=== PATIENT | male | born 1990 | race Caucasian/White ===

== ENCOUNTER → 2017-08-29 | Day surgery (SDC) | payer OTHER ==
[2017-08-25 09:35] VITALS: BMI 55.0
--- NOTE | 2017-08-25 10:03 | PAT Medication Instructions ---
Service Date Aug 25, 2017. Current Home Medication List Albuterol Hfa (Ventolin Hfa), 2-4 PUFFS INH Q6H Medication Instructions For Your Scheduled Surgery - Take the following medications the morning of surgery: Albuterol Hfa (Ventolin Hfa), 2-4 PUFFS INH Q6H (use if needed; BRING TO HOSPITAL) *nothing to eat or drink after midnight* If you have any questions please call us at [phone] or [phone] or [phone]
--- NOTE | 2017-08-25 10:40 | DIAGNOSTIC IMAGING REPORT ---
CHEST 2 VIEWS ROUTINE HISTORY: Preop. COMPARISON: Chest CTA 06/16/2015. FINDINGS: The lungs are clear. Cardiac silhouette is normal in size. No pleural effusions. No pneumothorax. Incidental note is made of a right azygos lobe. IMPRESSION: No acute process. Electronically signed by: Karson Mendoza M.D. 08/25/2017 10:39 AM Dictated Date/Time: 08/25/2017 10:36 AM
[2017-08-25 11:15] LABS: BASO % 0.3 %; BASO ABS # 0.02 K/uL (0-0.2); EOS ABS # 0.26 K/uL (0-0.5); HEMATOCRIT 47.7 % (42-52); IG# 0.01 K/uL (0.00-0.02); LYMPH % 30.9 %; LYMPH ABS # 2.01 K/uL (1.2-3.4); MEAN CELL VOLUME 82.7 fL (80-100); MEAN CORPUSCULAR HEMOGLOBIN 27.7 pg (25-34); MEAN CORPUSCULAR HGB CONC 33.5 g/dl (32-36); MEAN PLATELET VOLUME 9.1 fL (7.4-10.4); MONO % 9.2 %; NEUT % 55.4 %; PLATELET COUNT 250 K/uL (130-400); RED CELL DISTRIBUTION WIDTH CV 14.9 % (11.5-14.5); RED CELL DISTRIBUTION WIDTH SD 44.8 fL (36.4-46.3)
[2017-08-25 11:23] LABS: BLOOD UREA NITROGEN 14 mg/dl (7-18); CALCIUM 9.1 mg/dl (8.5-10.1); CARBON DIOXIDE 28 mmol/L (21-32); GLUCOSE 86 mg/dl (70-99); POTASSIUM 4.2 mmol/L (3.5-5.1); SODIUM 137 mmol/L (136-145)
[~2017-08-29] VITALS: Ht 175.3 cm; Wt 170.2 kg
[~2017-08-29] MED LIST: ATROPINE SULFATE 0.1 MG/ML 5ML SYR IV PRN; BUPIVACAINE 0.5 % 5 MG/1 ML MPF 30ML VIAL ONE; CEFAZOLIN 3000MG IV PUSH 15 ML IV SCH; EpHEDrine SULFATE INJ 50 MG/ML AMP IV PRN; FENTANYL CITRATE INJ 50 MCG/1 ML 2 ML VIAL IV PRN; FENTANYL CITRATE INJ 50 MCG/1 ML 2 ML VIAL ONE; KETOROLAC TROMETHAMINE 30 MG/ML VIAL ONE; LACTATED RINGER'S 1000ML 1,000 ML IV SCH; LIDOCAINE HCL 2% 2 ML VIAL (20MG/ML) ONE; METR500T PO; METRONIDAZOLE 500MG / NSS IV SCH; MIDAZOLAM HCL 1 MG/ML 2ML VIAL ONE; NURSING VERBAL MED ORDER ONE; ONDANSETRON INJ 2 MG/ML 2 ML VIAL IV PRN; ONDANSETRON INJ 2 MG/ML 2 ML VIAL ONE; OXYC7.5T65 PO; OXYCODONE/ACETAMINOPHEN 7.5-325 TAB PO PRN; PROPOFOL IV EMULSION 10 MG/ML 20 ML VIAL IV ONE; SUCCINYLCHOLINE CHLORIDE 20 MG/ML 10 ML VIAL IV ONE; VANCOMYCIN INJ 2,000 MG in SODIUM CHLORIDE 0.9% 500ML 500 ML IV SCH; VNTHFA/IN INH
[2017-08-29 09:25] VITALS: BP 124/68; PULSE 84; TEMP 36.4; O2SAT 94; Ht 175.3 cm; Wt 170.2 kg
--- NOTE | 2017-08-29 12:18 | History & Physical Bridge Note ---
H&P Re-Evaluation Bridge Note: I have examined the patient, reviewed the History & Physical and in the interval since the performance of the History & Physical I have noted the following changes of clinical significance: No changes noted
--- NOTE | 2017-08-29 12:48 | Discharge Instructions ---
Discharge Instructions Date of Service Aug 29, 2017. Admission Reason for Admission: Desires Permanent Sterilization Discharge Discharge Diagnosis / Problem: Elective Sterilization. History of Cyrptorchardism Discharge Goals Goal(s): Decrease discomfort, Improve function Activity Recommendations Activity Limitations: per Instructions/Follow-up section Lifting Limitations: no more than 10 pounds Exercise/Sports Limitations: rest today May Resume Sexual Activity: after follow-up appointment Shower/Bathe: tomorrow . Instructions / Follow-Up Instructions / Follow-Up Okay to use ice packs for 20 mins on and 20 mins off. Okay to use NSAIDs in 1- 2 days. Okay to use pain pills as needed. Call if any fevers or issues. May have swelling for few days. If severe swelling or discoloration, call office. Avoid injuries or overactivity. Monitor for other issues. Use contraceptives for 3-4 months after procedure until confirmed sterility after 90 days. Current Hospital Diet Patient's current hospital diet: Discharge Diet Recommended Diet: Regular Diet Procedures Procedures Performed: Scrotal Exploration and Bilateral Vasectomy Pending Studies Studies pending at discharge: no Medical Emergencies . Who to Call and When: Medical Emergencies: If at any time you feel your situation is an emergency, please call 911 immediately. . Non-Emergent Contact Non-Emergency issues call your: Primary Care Provider, Urologist Call Non-Emergent contact if: you have a fever, temperature is above 101, temperature is above 101.5, your pain is not controlled, your pain is worsening , wound has increased drainage, wound has increased redness . . "Provider Documentation" section prepared by Rich Melchor,. . VTE Core Measure Inpt VTE Proph given/why not?: SCD's
--- NOTE | 2017-08-29 13:42 | [facility] Operative Report ---
Operative Report Operative Date Aug 29, 2017. Pre-Operative Diagnosis Desires Sterility History of Cryptorchidism Post-Operative Diagnosis Desires Sterility History of Cryptorchidism Procedure(s) Performed Scrotal Exploration and Bilateral Vasectomy Surgeon Dr. Melchor [employer] Surgeon(s) none Estimated Blood Loss 5 ML Findings Bilateral vas deferens easily palpated and delivered. Specimens A. Right Vas deferen B. Left Vas defereren Drains None Anesthesia General Complication(s) None Disposition Recovery Room / PACU Indications Desired sterility. Patient has 1 child and another child on way with girlfriend. 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 . Description of Procedure Patient was consented and brought back to the operating room. Patient was placed under anesthesia in the supine position. Patient was prepped and draped in the regular sterile fashion. A time out was completed. The vas on the right was palpated and isolated. Local was placed in the skin and an opening made with a sharp hemostat. This was extended with a scalpel due to dartos position of orchipexied right testicle. The vas was grasped and isolated and surrounding tissues opened with a scalpel. The vas was grasped and clamped on each end. Clips were placed on the vas ends and a 1 cm segment was removed. the ends were fulgurated and ablated with the electrocautery. The area was inspected. The distal end was sutured below the surrounding fascia to complete a fascial interposition. All bleeding was controlled. The cord was anesthetized further with local anesthetic for a cord block. The tissue was closed with an inturrupted chromic suture. Glue was placed on the wound. The vas on the left was palpated and isolated. Local was placed in the skin and an opening made with a sharp hemostat. The vas was grasped and isolated and surrounding tissues opened with a scalpel. The vas was grasped and clamped on each end. Clips were placed on the vas ends and a 1 cm segment was removed. the ends were fulgurated and ablated with the electrocautery. The area was inspected. The distal end was sutured below the surrounding fascia to complete a fascial interposition. All bleeding was controlled. The cord was anesthetized further with local anesthetic for a cord block. The tissue was closed with an inturrupted chromic suture. Glue was placed on the wound. The patient was cleaned, aroused from anesthesia, and transferred to the pacu in stable condition having tolerated the procedure well with no complications. I was present and participated in all aspects of the procedure. I attest to the content of the Intraoperative Record and any orders documented therein. Any exceptions are noted below.
[2017-08-29 14:33] VITALS: BP 116/77; PULSE 80; TEMP 36.6; O2SAT 98
[2017-08-29 15:00] VITALS: BP 138/68; PULSE 92; O2SAT 94
--- NOTE | 2017-08-29 15:00 | Anesthesiology Progress Note ---
Anesthesia Post Op Note Date & Time Aug 29, 2017 at 14:59 Vital Signs Pain Intensity: 0 Vital Signs Past 12 Hours Date Time Temp Pulse Resp B/P (MAP) Pulse Ox O2 Delivery O2 Flow Rate FiO2 08/29/17 14:33 36.6 80 18 116/77 98 Room Air 08/29/17 14:20 36.3 83 16 120/76 94 Nasal Cannula 3 08/29/17 14:10 87 16 129/78 95 Nasal Cannula 3 08/29/17 14:00 82 20 129/78 95 Nasal Cannula 3 08/29/17 13:50 86 20 125/82 94 Oxymask 5 08/29/17 13:43 36.0 73 20 121/72 93 Oxymask 10 08/29/17 09:25 36.4 84 22 124/68 (86) 94 Room Air Notes Mental Status: alert / awake / arousable, participated in evaluation Pt Amnestic to Procedure: Yes Nausea / Vomiting: adequately controlled Pain: adequately controlled Airway Patency, RR, SpO2: stable & adequate BP & HR: stable & adequate Hydration State: stable & adequate Anesthetic Complications: no major complications apparent
[2017-08-29 15:40] VITALS: BP 105/66; PULSE 85; TEMP 36.6; O2SAT 93
[2017-08-29 16:30] VITALS: BP 114/73; PULSE 83; O2SAT 95
== END | disposition home or self-care (01) ==
LOC: C.ACU 09:05
PROVIDERS: ATTEND Urology
DX: Z30.2 Encounter for sterilization (principal); E66.01 Morbid (severe) obesity due to excess calories; J45.909 Unspecified asthma, uncomplicated; F90.9 Attention-deficit hyperactivity disorder, unspecified type; F17.200 Nicotine dependence, unspecified, uncomplicated; G47.33 Obstructive sleep apnea (adult) (pediatric); Z68.43 Body mass index [BMI] 50.0-59.9, adult; Z79.52 Long term (current) use of systemic steroids; Z83.3 Family history of diabetes mellitus